=== PATIENT | male | born 1970 | race Caucasian/White ===

== ENCOUNTER 2017-01-10 06:50 | Emergency (ER) | payer OTHER ==
[2017-01-10 06:58] VITALS: BP 140/90; PULSE 52; TEMP 97.8; BMI 28.1
--- NOTE | 2017-01-10 07:15 | PDOC ---
History of Present Illness - General Chief Complaint: Injury Stated Complaint: LEFT FOOT INJURY Time Seen by Provider: 01/10/17 07:14 - History of Present Illness Initial Comments: 01/10/17 07:50 Chief complaint: Ankle injury History of present illness: Patient was playing soccer last night twisted his left ankle. Pain and swelling medially. Difficulty with ambulation. Ambulating with a cane. Review of systems: No other injuries. No pain or injury to the head neck chest abdomen spine and pelvis or other extremities. No chest pain, shortness of breath, abdominal pain, nausea, vomiting, diarrhea, visual or focal neurologic symptoms Past medical history: Patient denies any significant medical or surgical problems past her present. Takes no regular medication Social history: Active, no disability, no tobacco alcohol or nonprescription drugs Family history: Reviewed and noncontributory including early coronary artery disease, metabolic disease including diabetes, cancer. Bone and joint disease. Physical exam: Alert and oriented well-developed well-nourished no acute distress cheerful and cooperative Afebrile, vital signs normal Left ankle: There is swelling and tenderness medially with point tenderness over the medial malleolus and inferior and posterior ligaments. No deformity. Pulses full. Capillary refill intact to the toes. No distal sensory deficits. No fifth metatarsal tenderness or deformity. No swelling or deformity of the dorsum of the foot. Achilles tendon is nontender and intact, with full plantar flexion against resistance. No point tenderness of the heel. Impression: Severe sprain, rule out fracture Plan: X-ray and further orthopedic management depending on results. Past History - Past Medical History Allergies/Adverse Reactions: Allergies Allergy/AdvReac Type Severity Reaction Status Date / Time No Known Allergies Allergy Verified 01/10/17 06:54 Home Medications: Ambulatory Orders NK [No Known Home Medication] 01/10/17 COPD: No Other medical history: DENIES - Suicide/Smoking/Psychosocial Hx Smoking History: Former smoker Have you smoked in the past 12 months: No If you are a former smoker, when did you quit?: 40 YRS Information on smoking cessation initiated: No Hx Alcohol Use: No Drug/Substance Use Hx: No Substance Use Type: None *Physical Exam - Vital Signs Last Vital Signs Temp Pulse Resp BP Pulse Ox 97.8 F 52 L 18 140/90 98 01/10/17 06:55 01/10/17 06:55 01/10/17 06:55 01/10/17 06:55 01/10/17 06:55 Medical Decision Making - Medical Decision Making 01/10/17 08:30 X-ray read by radiologist, no acute fracture. Aircast applied. Patient more comfortable. Ambulating adequately. No distal numbness or tingling, good digital motion, good capillary refill, pulses intact and no sensory deficit post Aircast application Instructed to follow-up with orthopedist in one week if pain or swelling persists. Rest and elevate the ankle with limited ambulation and standing for the next few days. *DC/Admit/Observation/Transfer Diagnosis at time of Disposition: Ankle sprain - Discharge Dispostion Disposition: HOME Condition at time of disposition: Improved Admit: No - Referrals - Patient Instructions Printed Discharge Instructions: DI for Ankle Sprain Additional Instructions: Rest ice elevate Advil or Aleve. Limited standing and walking until pain improves, weightbearing as tolerated to prevent muscle deterioration. See orthopedist if pain or swelling persists in one week for further evaluation. - Post Discharge Activity
== END 2017-01-10 08:41 | disposition home or self-care (01) ==
LOC: FER 06:50
PROC: 2W3RX1Z Immobilization of Left Lower Leg using Splint (ICD-10-PCS; principal; 2017-01-10)
DX: S93.402A Sprain of unspecified ligament of left ankle, initial encounter (principal); Y93.66 Activity, soccer; Y92.322 Soccer field as the place of occurrence of the external cause; Z87.891 Personal history of nicotine dependence
CPT/HCPCS: 73610-TC-LT; 99281-25